=== PATIENT | female | born 1980 | race Caucasian/White ===

== ENCOUNTER 2018-12-15 18:23 | Emergency (ER) | payer OTHER ==
[~2018-12-15] VITALS: Ht 165.1 cm; Wt 72.6 kg
[~2018-12-15 18:23] MED LIST: FLUT16SP2 NS; NAPR220C4 PO; VALA500T5 PO
--- NOTE | 2018-12-15 18:28 | ED.ADGEN ---
Past History Past Medical History: Migraines, Other Past Surgical History: Cholecystectomy, Other Alcohol Use: None Drug Use: None Adult General Chief Complaint Chief Complaint ".. I had a sore throat about a week.. but had this migraine head now for 2 days.. I took every in my med. 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 He is worse when she bends over. Patient recently at [facility] but no specific ill contacts. No history of overseas travel. Patient normally healthy. Patient did not receive flu vaccination this season. Patient had had slightly sore throat. No history of trauma. Patient has not had a previous wor kup for headaches. Review of Systems Review of Systems Constitutional: Denies fever or chills [] Eyes: Denies change in visual acuity, redness, or eye pain [] HENT: Denies nasal congestion . Has sore throat [] Respiratory: Denies cough or shortness of breath [] Cardiovascular: No additional information not addressed in HPI [] GI: Denies abdominal pain, nausea, vomiting, bloody stools or diarrhea [] : Denies dysuria or hematuria [] Musculoskeletal: Denies back pain or joint pain [] Integument: Denies rash or skin lesions [] Neurologic: Complaints of headache,. Denies focal weakness or sensory changes [] Endocrine: Denies polyuria or polydipsia [] All other systems were reviewed and found to be within normal limits, except as documented in this note. Family History Family History Noncontributory Current Medications Current Medications Current Medications Medications (Trade) Dose Ordered Sig/Zheng Start Time Stop Time Status Last Admin Dose Admin Diphenhydramine HCl (Benadryl) 50 mg 1X ONCE 12/15/18 18:45 12/15/18 18:47 DC 12/15/18 18:47 50 MG Ketorolac Tromethamine (Toradol 30mg Vial) 30 mg 1X ONCE 12/15/18 19:30 12/15/18 19:33 DC 12/15/18 20:12 30 MG Lactated Ringer's 1,000 ml @ 1,000 mls/hr Q1H 12/15/18 18:41 12/15/18 19:40 DC 12/15/18 19:22 1,000 MLS/HR Ondansetron HCl (Zofran) 8 mg 1X ONCE 12/15/18 18:45 12/15/18 18:47 DC 12/15/18 18:45 8 MG Oxycodone/ Acetaminophen (Percocet 5/325) 2 tab 1X ONCE 12/15/18 18:45 12/15/18 18:47 DC 12/15/18 19:19 2 TAB Sodium Chloride 50 ml @ As Directed STK-MED ONCE 12/15/18 19:14 12/15/18 19:15 DC Sumatriptan Succinate (Imitrex) 6 mg 1X ONCE 12/15/18 21:00 12/15/18 21:01 DC 12/15/18 20:56 6 MG Valproic Acid (Depacon) 500 mg STK-MED ONCE 12/15/18 19:15 12/15/18 19:16 DC Valproic Acid 500 mg/Sodium Chloride 55 ml @ 55 mls/hr 1X STAT 12/15/18 18:41 12/15/18 19:40 DC 12/15/18 19:35 55 MLS/HR Allergies Allergies Allergies Coded Allergies Type Severity Reaction Last Updated Verified No Known Drug Allergies 12/19/13 No Physical Exam Physical Exam Constitutional: Well developed, well nourished, moderately acute distress, non- toxic appearance. [] HENT: Normocephalic, atraumatic, bilateral external ears normal, oropharynx moist, ejected pharynx no oral exudates, nose normal. [] Eyes: PERRLA, EOMI, conjunctiva normal, no discharge. [] Neck: Normal range of motion, no tenderness, supple, no stridor. [] Cardiovascular:Heart rate regular rhythm, no murmur [] Lungs & Thorax: Bilateral breath sounds: A packs on auscultation [] Abdomen: Bowel sounds normal, soft, no tenderness, no masses, no pulsatile masses. [Old surgery scars.] Skin: Warm, dry, no erythema, no rash. [] Back: No tenderness, no CVA tenderness. [] Extremities: No tenderness, no cyanosis, no clubbing, ROM intact, no edema. []Left hand dominant. Neurologic: Alert and oriented X 3, normal motor function, normal sensory function, no focal deficits noted. []DTRs +2 patella and brachial. Child Development Professor equal. Air-conduction more than bone conduction and no lateralization 128 fork. Distal vibratory intact. Psychologic: Affect mildly anxious, judgement normal, mood normal. [] Current Patient Data Vital Signs Vital Signs Date Time Temp Pulse Resp B/P (MAP) Pulse Ox O2 Delivery O2 Flow Rate FiO2 12/15/18 20:42 70 16 120/75 (90) 100 Room Air 12/15/18 18:30 98.3 Lab Results Laboratory Tests Test 12/15/18 18:50 12/15/18 18:57 12/15/18 19:00 12/15/18 19:03 Urine Collection Type Unknown Urine Color Yellow Urine Clarity Clear Urine pH 7.5 Urine Specific Geraldine 1.020 Urine Protein Neg (NEG-TRACE) Urine Glucose (UA) Neg mg/dL (NEG) Urine Ketones (Stick) Neg mg/dL (NEG) Urine Blood Neg (NEG) Urine Nitrite Neg (NEG) Urine Bilirubin Neg (NEG) Urine Urobilinogen Dipstick 0.2 mg/dL (0.2 mg/dL) Urine Leukocyte Esterase Neg (NEG) Urine RBC 0 /HPF (0-2) Urine WBC 0 /HPF (0-4) Urine Squamous Epithelial Cells Occ /LPF Urine Bacteria 0 /HPF (0-FEW) Urine Opiates Screen Neg (NEG) Urine Methadone Screen Neg (NEG) Urine Barbiturates Neg (NEG) Urine Phencyclidine Screen Neg (NEG) Urine Amphetamine/Methamphetamine Neg (NEG) Urine Benzodiazepines Screen Neg (NEG) Urine Cocaine Screen Neg (NEG) Urine Cannabinoids Screen Neg (NEG) Urine Ethyl Alcohol Neg (NEG) White Blood Count 6.2 x10^3/uL (4.0-11.0) Red Blood Count 4.19 x10^6/uL (3.50-5.40) Hemoglobin 13.8 g/dL (12.0-15.5) Hematocrit 40.5 % (36.0-47.0) Mean Corpuscular Volume 97 fL (79-100) Mean Corpuscular Hemoglobin 33 pg (25-35) Mean Corpuscular Hemoglobin Concent 34 g/dL (31-37) Red Cell Distribution Width 12.7 % (11.5-14.5) Platelet Count 284 x10^3/uL (140-400) Neutrophils (%) (Auto) 67 % (31-73) Lymphocytes (%) (Auto) 20 % (24-48) L Monocytes (%) (Auto) 10 % (0-9) H Eosinophils (%) (Auto) 2 % (0-3) Basophils (%) (Auto) 1 % (0-3) Neutrophils # (Auto) 4.2 x10^3uL (1.8-7.7) Lymphocytes # (Auto) 1.2 x10^3/uL (1.0-4.8) Monocytes # (Auto) 0.6 x10^3/uL (0.0-1.1) Eosinophils # (Auto) 0.1 x10^3/uL (0.0-0.7) Basophils # (Auto) 0.0 x10^3/uL (0.0-0.2) Erythrocyte Sedimentation Rate 5 (0-25) Prothrombin Time 10.4 SEC (9.4-11.4) Prothrombin Time INR 1.0 (0.9-1.1) PTT 25 SEC (23-33) D-Dimer (Cynthia) 0.26 mg/L (0.00-0.50) Sodium Level 139 mmol/L (136-145) Potassium Level 3.9 mmol/L (3.5-5.1) Chloride Level 104 mmol/L (98-107) Carbon Dioxide Level 30 mmol/L (21-32) Anion Gap 5 (6-14) L Blood Urea Nitrogen 15 mg/dL (7-20) Creatinine 0.8 mg/dL (0.6-1.0) Estimated GFR (Cockcroft-Gault) 80.7 Glucose Level 116 mg/dL (70-99) H Calcium Level 9.8 mg/dL (8.5-10.1) Magnesium Level 2.0 mg/dL (1.8-2.4) Total Bilirubin 0.3 mg/dL (0.2-1.0) Direct Bilirubin 0.1 mg/dL (0.0-0.2) Aspartate Amino Transferase (AST) 15 U/L (15-37) Alanine Aminotransferase (ALT) 23 U/L (14-59) Alkaline Phosphatase 57 U/L (46-116) Creatine Kinase 71 U/L (26-192) Troponin I Quantitative < 0.017 ng/mL (0-0.055) Total Protein 7.1 g/dL (6.4-8.2) Albumin 3.8 g/dL (3.4-5.0) Group A Streptococcus Rapid Negative (NEGATIVE) POC Urine HCG, Qualitative hcg negative (Negative) EKG EKG [] Radiology/Procedures Radiology/Procedures [][address] [place] [id number] IMAGING REPORT Signed PATIENT: ARSLAN MARTINEZ ACCOUNT: [id number] : 1980 LOCATION: ER AGE: 38 SEX: F EXAM STATUS: PRE ER ORD. PHYSICIAN: NIAK CLARK MD REASON: Headache x 48 hours. Neg HCG today PROCEDURE: CT HEAD WO CONTRAST CT head without contrast dated 12/15/2018. No comparison available. Clinical indication: Headache for 48 hours. TECHNIQUE: Contiguous axial imaging the head was performed from skull base to vertex. No contrast administered. One or more of the following individualized dose reduction techniques were utilized for this examination: 1. Automated exposure control 2. Adjustment of the mA and/or kV according to patient size 3. Use of iterative reconstruction technique FINDINGS: Ventricles and sulci are within normal limits for age. No midline shift or mass effect. Brain parenchyma is of normal attenuation. No hemorrhage or extra-axial collection. Posterior fossa and brainstem unremarkable. Visualized paranasal sinuses and mastoid air cells are clear. No apparent calvarial abnormality. IMPRESSION: No evidence of acute intracranial abnormality. Electronically signed by: Luis Fairbanks MD (12/15/2018 7:16 PM) [facility] DICTATED AND SIGNED BY: LUIS FAIRBANKS MD DATE: 12/15/181915 Course & Med Decision Making Course & Med Decision Making Pertinent Labs and Imaging studies reviewed. (See chart for details) Pt. declines spinal tap at this time. Exhibits UCAR capacity. Follow up with primary. Trial Imitrex 100 mg at start of headache.. No more than 200 mg in 24 hrs. Return if any concerns. Follow up must. Tylenol and Ibuprofen pain. [] Final Impression Final Impression 1. Migraine headache[] 2. Viral Syndrome Dragon Disclaimer Dragon Disclaimer This electronic medical record was generated, in whole or in part, using a voice recognition dictation system. Discharge Summary Visit Information Final Diagnosis Problems Medical Problems: (1) Headache Status: Acute Brief Hospital Course Allergies Allergies Coded Allergies Type Severity Reaction Last Updated Verified No Known Drug Allergies 12/19/13 No Vital Signs Vital Signs Date Time Temp Pulse Resp B/P (MAP) Pulse Ox O2 Delivery O2 Flow Rate FiO2 12/15/18 20:42 70 16 120/75 (90) 100 Room Air 12/15/18 18:30 98.3 Lab Results Laboratory Tests Test 12/15/18 18:50 12/15/18 18:57 12/15/18 19:00 12/15/18 19:03 Urine Collection Type Unknown Urine Color Yellow Urine Clarity Clear Urine pH 7.5 Urine Specific Geraldine 1.020 Urine Protein Neg (NEG-TRACE) Urine Glucose (UA) Neg mg/dL (NEG) Urine Ketones (Stick) Neg mg/dL (NEG) Urine Blood Neg (NEG) Urine Nitrite Neg (NEG) Urine Bilirubin Neg (NEG) Urine Urobilinogen Dipstick 0.2 mg/dL (0.2 mg/dL) Urine Leukocyte Esterase Neg (NEG) Urine RBC 0 /HPF (0-2) Urine WBC 0 /HPF (0-4) Urine Squamous Epithelial Cells Occ /LPF Urine Bacteria 0 /HPF (0-FEW) Urine Opiates Screen Neg (NEG) Urine Methadone Screen Neg (NEG) Urine Barbiturates Neg (NEG) Urine Phencyclidine Screen Neg (NEG) Urine Amphetamine/Methamphetamine Neg (NEG) Urine Benzodiazepines Screen Neg (NEG) Urine Cocaine Screen Neg (NEG) Urine Cannabinoids Screen Neg (NEG) Urine Ethyl Alcohol Neg (NEG) White Blood Count 6.2 x10^3/uL (4.0-11.0) Red Blood Count 4.19 x10^6/uL (3.50-5.40) Hemoglobin 13.8 g/dL (12.0-15.5) Hematocrit 40.5 % (36.0-47.0) Mean Corpuscular Volume 97 fL (79-100) Mean Corpuscular Hemoglobin 33 pg (25-35) Mean Corpuscular Hemoglobin Concent 34 g/dL (31-37) Red Cell Distribution Width 12.7 % (11.5-14.5) Platelet Count 284 x10^3/uL (140-400) Neutrophils (%) (Auto) 67 % (31-73) Lymphocytes (%) (Auto) 20 % (24-48) Monocytes (%) (Auto) 10 % (0-9) Eosinophils (%) (Auto) 2 % (0-3) Basophils (%) (Auto) 1 % (0-3) Neutrophils # (Auto) 4.2 x10^3uL (1.8-7.7) Lymphocytes # (Auto) 1.2 x10^3/uL (1.0-4.8) Monocytes # (Auto) 0.6 x10^3/uL (0.0-1.1) Eosinophils # (Auto) 0.1 x10^3/uL (0.0-0.7) Basophils # (Auto) 0.0 x10^3/uL (0.0-0.2) Erythrocyte Sedimentation Rate 5 (0-25) Prothrombin Time 10.4 SEC (9.4-11.4) Prothromb Time International Ratio 1.0 (0.9-1.1) Activated Partial Thromboplast Time 25 SEC (23-33) D-Dimer (Cynthia) 0.26 mg/L (0.00-0.50) Sodium Level 139 mmol/L (136-145) Potassium Level 3.9 mmol/L (3.5-5.1) Chloride Level 104 mmol/L (98-107) Carbon Dioxide Level 30 mmol/L (21-32) Anion Gap 5 (6-14) Blood Urea Nitrogen 15 mg/dL (7-20) Creatinine 0.8 mg/dL (0.6-1.0) Estimated GFR (Cockcroft-Gault) 80.7 Glucose Level 116 mg/dL (70-99) Calcium Level 9.8 mg/dL (8.5-10.1) Magnesium Level 2.0 mg/dL (1.8-2.4) Total Bilirubin 0.3 mg/dL (0.2-1.0) Direct Bilirubin 0.1 mg/dL (0.0-0.2) Aspartate Amino Transf (AST/SGOT) 15 U/L (15-37) Alanine Aminotransferase (ALT/SGPT) 23 U/L (14-59) Alkaline Phosphatase 57 U/L (46-116) Creatine Kinase 71 U/L (26-192) Troponin I Quantitative < 0.017 ng/mL (0-0.055) Total Protein 7.1 g/dL (6.4-8.2) Albumin 3.8 g/dL (3.4-5.0) Group A Streptococcus Rapid Negative (NEGATIVE) Bedside Urine HCG, Qualitative hcg negative (Negative) Brief Hospital Course 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 Discharge Information Condition at Discharge: Improved, Stable Disposition/Orders: D/C to Home Dischare Medications Current Medications Lactated Ringer's 1,000 ml @ 1,000 mls/hr Q1H IV Last administered on 12/15/18at 19:22; Admin Dose 1,000 MLS/HR; Start 12/15/18 at 18:41; Stop 12/15/18 at 19:40; Status DC Ondansetron HCl (Zofran) 8 mg 1X ONCE IV Last administered on 12/15/18at 18:45; Admin Dose 8 MG; Start 12/15/18 at 18:45; Stop 12/15/18 at 18:47; Status DC Diphenhydramine HCl (Benadryl) 50 mg 1X ONCE IV Last administered on 12/15/18at 18:47; Admin Dose 50 MG; Start 12/15/18 at 18:45; Stop 12/15/18 at 18:47; Status DC Valproic Acid 500 mg/Sodium Chloride 55 ml @ 55 mls/hr 1X STAT IV Last administered on 12/15/18at 19:35; Admin Dose 55 MLS/HR; Start 12/15/18 at 18:41; Stop 12/15/18 at 19:40; Status DC Oxycodone/ Acetaminophen (Percocet 5/325) 2 tab 1X ONCE PO Last administered on 12/15/18at 19:19; Admin Dose 2 TAB; Start 12/15/18 at 18:45; Stop 12/15/18 at 18:47; Status DC Sodium Chloride 50 ml @ As Directed STK-MED ONCE .ROUTE ; Start 12/15/18 at 19:14; Stop 12/15/18 at 19:15; Status DC Valproic Acid (Depacon) 500 mg STK-MED ONCE IV ; Start 12/15/18 at 19:15; Stop 12/15/18 at 19:16; Status DC Ketorolac Tromethamine (Toradol 30mg Vial) 30 mg 1X ONCE IV Last administered on 12/15/18at 20:12; Admin Dose 30 MG; Start 12/15/18 at 19:30; Stop 12/15/18 at 19:33; Status DC Sumatriptan Succinate (Imitrex) 6 mg 1X ONCE SQ Last administered on 12/15/18at 20:56; Admin Dose 6 MG; Start 12/15/18 at 21:00; Stop 12/15/18 at 21:01; Status DC Active Scripts Active Imitrex (Sumatriptan Succinate) 100 Mg Tablet 100 Mg PO 1X Zofran (Ondansetron Hcl) 8 Mg Tablet 8 Mg PO QIDPRN PRN Hydrocodone-Ibuprofen 7.5-200 (Hydrocodone/Ibuprofen) 1 Each Tablet 1 Tab PO PRN Q6HRS PRN Reported Aleve (Naproxen Sodium) 220 Mg Capsule Unknown Dose PO Valtrex (Valacyclovir Hcl) 500 Mg Tablet 500 Mg PO Flonase (Fluticasone Propionate) 16 Gm [place].susp 16 Gm NS Dragon Disclaimer This chart was dictated in whole or in part using Voice Recognition software in a busy, high-work load, and often noisy Emergency Department environment. It may contain unintended and wholly unrecognized errors or omissions. NIKA CLARK MD Dec 15, 2018 18:28
[2018-12-15] MEDS: ONDANSETRON PF 4 MG/2 ML VIAL. IV ONE (18:45)
[2018-12-15] MEDS: diphenhydrAMINE 50 MG/ML VIAL IV ONE (18:47)
[2018-12-15 19:12] LABS: BARBITURATES NEG (NEG); BENZODIAZEPINES NEG (NEG); CANNABINOIDS NEG (NEG); COCAINE NEG (NEG); METHADONE NEG (NEG); OPIATES NEG (NEG); PHENCYCLIDINE NEG (NEG)
[2018-12-15 19:13] LABS: AMPHETAMINE/METHAMPHETAMINE NEG (NEG)
[2018-12-15] MEDS ORDERED: IV NORMAL SALINE 50ML 50 ML ONE (19:14)
[2018-12-15] MEDS ORDERED: VALPROATE SODIUM 500 MG/5 ML VIAL IV ONE (19:15)
[2018-12-15] MEDS: oxyCODONE/APAP 5/325 1 TAB TABLET PO ONE (19:19)
--- NOTE | 2018-12-15 19:19 | RAD ---
CT head without contrast dated 12/15/2018. No comparison available. Clinical indication: Headache for 48 hours. TECHNIQUE: Contiguous axial imaging the head was performed from skull base to vertex. No contrast administered. One or more of the following individualized dose reduction techniques were utilized for this examination: 1. Automated exposure control 2. Adjustment of the mA and/or kV according to patient size 3. Use of iterative reconstruction technique FINDINGS: Ventricles and sulci are within normal limits for age. No midline shift or mass effect. Brain parenchyma is of normal attenuation. No hemorrhage or extra-axial collection. Posterior fossa and brainstem unremarkable. Visualized paranasal sinuses and mastoid air cells are clear. No apparent calvarial abnormality. IMPRESSION: No evidence of acute intracranial abnormality. Electronically signed by: Luis Fairbanks MD (12/15/2018 7:16 PM) [facility]
[2018-12-15 19:20] LABS: BACTERIA,URINE 0 /HPF (0-FEW); BILIRUBIN,URINE NEG (NEG); CLARITY,URINE CLEAR; COLOR,URINE YELLOW; GLUCOSE,URINE NEG (NEG); NITRITE,URINE NEG (NEG); RBC,URINE 0 /HPF (0-2); SQUAMOUS EPITHELIAL CELL,UR OCC /LPF; UROBILINOGEN,URINE 0.2 mg/dL (0.2 mg/dL); WBC,URINE 0 /HPF (0-4)
[2018-12-15] MEDS: IV RINGERS SOLUTION,LACTATED 1,000 ML IV SCH (19:22)
[2018-12-15 19:26] LABS: BASO % 1 % (0-3); EOS # 0.1 x10^3/uL (0.0-0.7); EOS % 2 % (0-3); HEMATOCRIT 40.5 % (36.0-47.0); HEMOGLOBIN 13.8 g/dL (12.0-15.5); LYMPH # 1.2 x10^3/uL (1.0-4.8); LYMPH % 20 % (24-48); MEAN CORPUSCULAR HEMOGLOBIN 33 pg (25-35); MEAN CORPUSCULAR HGB CONC 34 g/dL (31-37); MEAN CORPUSCULAR VOLUME 97 fL (79-100); MONO # 0.6 x10^3/uL (0.0-1.1); MONO % 10 % (0-9); NEUT # 4.2 x10^3uL (1.8-7.7); NEUT % 67 % (31-73); PLATELET COUNT 284 x10^3/uL (140-400); RED BLOOD COUNT 4.19 x10^6/uL (3.50-5.40); RED CELL DISTRIBUTION WIDTH 12.7 % (11.5-14.5); WHITE BLOOD COUNT 6.2 x10^3/uL (4.0-11.0)
[2018-12-15] MEDS: VALPROATE SODIUM 500 MG in IV NORMAL SALINE 50ML 50 ML IV STA (19:35)
[2018-12-15 19:36] LABS: ALBUMIN 3.8 g/dL (3.4-5.0); CALCIUM 9.8 mg/dL (8.5-10.1); CREATININE 0.8 mg/dL (0.6-1.0); DIRECT BILIRUBIN 0.1 mg/dL (0.0-0.2); GFR 80.7; POTASSIUM 3.9 mmol/L (3.5-5.1); TOTAL BILIRUBIN 0.3 mg/dL (0.2-1.0); TOTAL PROTEIN 7.1 g/dL (6.4-8.2)
[2018-12-15] MEDS: KETOROLAC 30 MG/ML VIAL. IV ONE (20:12)
[2018-12-15 20:29] LABS: SEDIMENTATION RATE 5 (0-25)
[2018-12-15 20:42] VITALS: BP 120/75
[2018-12-15] MEDS ORDERED: SUMA100T3 PO (20:51)
[2018-12-15] MEDS ORDERED: HYDR-1179 PO (20:51)
[2018-12-15] MEDS ORDERED: ONDA8TAB9 PO (20:51)
[2018-12-15] MEDS: SUMAtriptan SUCC 6 MG/0.5 ML VIAL SQ ONE (20:56)
== END 2018-12-15 21:10 | disposition home or self-care (01) ==
LOC: ER 18:23
DX: G43.909 Migraine, unspecified, not intractable, without status migrainosus (principal); B34.9 Viral infection, unspecified
CPT/HCPCS: 36415; 70450; 80048; 80076; 80307; 81001; 81025; 82550; 83735; 84443; 84484; 85025; 85379; 85610; 85651; 85730; 87070; 87880; 96365; 96372; 96375; 99285; J1200; J1885; J2405; J3030; J3490; J7120